=== PATIENT | male | born 1965 | race Caucasian/White ===

== ENCOUNTER 2017-03-06 17:47 | Emergency (ER) | payer OTHER, MEDICARE ==
[~2017-03-06] VITALS: Ht 172.7 cm; Wt 49.9 kg
[~2017-03-06 17:47] MED LIST: ADDERALL20 MG PO; METHADONE10 MG/5 ML PO; MULTIVITAMIN1 TAB PO; XANAX2 M1 PO
[2017-03-06] MEDS ORDERED: CYCLOBENZAPRINE10 M1 PO (18:28)
[2017-03-06] MEDS ORDERED: SUBOXONE 4 MG-1 EACH SL (18:28)
[2017-03-06] MEDS ORDERED: QUETIAPINE FUM100 M1 (18:29)
[2017-03-06] MEDS ORDERED: DEXTROAMP-AMPHE20 MG PO (18:29)
[2017-03-06] MEDS ORDERED: ADVIL200 M1 PO (18:30)
[2017-03-06] MEDS ORDERED: ALEVE220 M1 PO (18:30)
[2017-03-06] MEDS ORDERED: PAIN RELIEF325 MG PO (18:30)
[2017-03-06] MEDS ORDERED: BACTRIM DS TAB1 EACH PO (19:37)
[2017-03-06] MEDS ORDERED: AMOXICILLIN875 M1 PO (19:37)
--- NOTE | 2017-03-06 19:37 | ED SKIN/ALLERGY COMPLAINT ---
See Addendum History of Present Illness General Chief Complaint: General Adult Stated Complaint: BIBA RT ARM SKIN INFECTION (IN PD CUSTODY) Source: patient Exam Limitations: no limitations Vital Signs & Intake/Output Vital Signs & Intake/Output Vital Signs Date Time Temp Pulse Resp B/P B/P Pulse O2 O2 Flow FiO2 Mean Ox Delivery Rate 03/06 1946 97.5 84 18 125/80 97 Room Air Room Air 03/06 1753 97.9 87 15 126/86 97 Room Air Room Air ED Intake and Output 03/07 0000 03/06 1200 Intake Total Output Total Balance Patient 110 lb Weight Weight Reported by Patient Measurement Method Allergies Coded Allergies: mirtazapine (From [facility]) (Severe, SEIZURE 03/06/17) morphine (VANESSA STOMACH 03/06/17) trazodone (PRIAPISM 03/06/17) Reconcile Medications Acetaminophen (Pain Relief) 325 MG TABLET 2 TAB PO PRN PAIN (Reported) Alprazolam (Xanax) 2 MG TABLET 1 TAB PO TID PRN ANXIETY/PANIC DISORDER ( Reported) Amoxicillin 875 MG TABLET 1 TAB PO BID abscess Buprenorphine HCl/Naloxone HCl (Suboxone 4 MG-1 MG Sl Film) 4 MG-1 MG FILM 1 STR SL TID PRN MENTAL HEALTH (Reported) Cyclobenzaprine HCl 10 MG TABLET 1 TAB PO BID PRN MUSCLE RELAXER (Reported) Dextroamphetamine/Amphetamine (Dextroamp-Amphetamin 20 MG Tab) 20 MG TABLET 1 TAB PO BID ADHD (Reported) Ibuprofen (Advil) 200 MG CAPSULE 2 CAP PO PRN PAIN (Reported) Naproxen Sodium (Aleve) 220 MG CAPSULE 2 TAB PO PRN PAIN (Reported) Quetiapine Fumarate (Unknown Strength) TABLET (Unknown Dose) UNKNOWN ( Reported) Sulfamethoxazole/Trimethoprim (Bactrim Ds Tablet) 800 MG-160 MG TABLET 1 TAB PO BID abscess Triage Note: PT BIBA FROM PD LOCK UP FOR R ELBOW ABCESS. PT STUCK HIS ARM THROUGH HOLLOW WOOD DOOR LAST TUESDAY. PT'S ARM HAS ?ABCESS WITH +DRAINAGE, REDNESS. PT POKED WOUND WITH SAFETY PIN AND NOW LOOKS INFECTED. DENIES FEVER/CHILLS. Triage Nurses Notes Reviewed? yes Onset: Gradual Duration: day(s): Timing: recent history Severity: moderate Location: extremities HPI: 52yo male presents to ED c/o wound to right arm x 3 days. Patient states that three days ago he injured his hand by breaking through a wood door. The next day he noted redness and swelling which gradually worsened until today. The patient tried applying peroxide and popping it with a safety pin however this did not help. He applied bacitracin topically. He notes drainage from wound. He denies fevers, chills, IV drug use, malaise, abdominal pain. (SAIDA MÁRQUEZ PA-C) Past History Travel History Traveled to [place] past 21 day No Medical History Any Pertinent Medical History? see below for history Neurological: NONE EENT: NONE Cardiovascular: NONE Respiratory: NONE Gastrointestinal: NONE Hepatic: NONE Renal: NONE Musculoskeletal: chronic back pain, degen joint disease Psychiatric: anxiety, depression, PANIC DISORDER ADHD ON SUBOXONE S/P CAME OFF PAIN MANAGEMENT Endocrine: NONE Blood Disorders: NONE Cancer(s): NONE SHELTER ADVOCATE/Reproductive: NONE Surgical History Surgical History: non-contributory Psychosocial History Who do you live with Patient/Self What is your primary language Yi Tobacco Use: Current Daily Use Daily Tobacco Use Amount/Type: => 5 Cigarettes daily ETOH Use: denies use Illicit Drug Use: denies illicit drug use Family History Hx Contributory? No (SAIDA MÁRQUEZ PA-C) Review of Systems Review of Systems Constitutional: Reports: no symptoms. EENTM: Reports: no symptoms. Respiratory: Reports: no symptoms. Cardiovascular: Reports: no symptoms. GI: Reports: no symptoms. Genitourinary: Reports: no symptoms. Musculoskeletal: Reports: no symptoms. Skin: Reports: see HPI. Neurological/Psychological: Reports: no symptoms. Hematologic/Endocrine: Reports: no symptoms. Immunologic/Allergic: Reports: no symptoms. All Other Systems: Reviewed and Negative (SAIDA MÁRQUEZ PA-C) Physical Exam Physical Exam General Appearance: well developed/nourished, no apparent distress, alert, awake Head: atraumatic, normal appearance Eyes: Bilateral: normal appearance. Ears, Nose, Throat: hearing grossly normal Neck: normal inspection, supple, full range of motion Respiratory: normal breath sounds, no respiratory distress, lungs clear Cardiovascular: regular rate/rhythm Peripheral Pulses: 2+ radial (R) Back: normal inspection, normal range of motion Extremities: 2x2cm area of erythema, tenderness, and fluctuance with pinpoint pustules and central drainage on right cubital fossa Neurologic/Psych: no motor/sensory deficits, awake, alert, oriented x 3 Skin: 2x2cm area of erythema, fluctuance, and tenderness with pinpoint pustules and central drainage on right cubital fossa Skin Problem Character: abcess (SAIDA MÁRQUEZ PA-C) Progress Differential Diagnosis: abscess/cellulitis, contact dermatitis, urticaria, laceration, septic arthritis, bursitis Plan of Care: Orders Procedure Date/time Status EXTREMETIES CULTURE 03/06 1932 Active Microbiology 03/06 1939 EXTREMITIE: Culture & Sensitivity - RES STAPH AUREUS 03/06 1939 EXTREMITIE: Gram Stain - RES Abscess is already draining. Drainage is expressed and cultured. Patient given course of bactrim with amoxicillin for coverage of skin kayli. He will follow up here or with his PCP in 2 days for a wound check. He was educated on the signs and symptoms of infection he'll return with worsening redness, swelling, streaking up his arm, fevers, chills. The patient is in agreement with the plan of care. (SAIDA MÁRQUEZ PA-C) Departure Departure Disposition: HOME OR SELF CARE Condition: Stable Clinical Impression Primary Impression: Abscess Referrals: RUTHANN GORDILLO MD (PCP/Family) Additional Instructions: Take full course of antibiotics. Follow up here or with your primary care doctor in two days for a wound check. Return with worsening symtpoms, increased swelling, red streaking up arm, fevers, chills. Departure Forms: Customer Survey General Discharge Information Prescriptions: Current Visit Scripts Sulfamethoxazole/Trimethoprim (Bactrim Ds Tablet) 1 TAB PO BID #20 TAB Amoxicillin 1 TAB PO BID #20 TAB (SAIDA MÁRQUEZ PA-C) PA/COMMERCIAL UNDERWRITER Co-Sign Statement Statement: ED Attending supervision documentation- [] I saw and evaluated the patient. I have also reviewed all the pertinent lab results and diagnostic results. I agree with the findings and the plan of care as documented in the PA's/COMMERCIAL UNDERWRITER's documentation. [x] I have reviewed the ED Record and agree with the PA's/COMMERCIAL UNDERWRITER's documentation. [] Additions or exceptions (if any) to the PAs/COMMERCIAL UNDERWRITER's note and plan are summarized below: [] (GEMMA JAIME DO
[2017-03-06 19:46] VITALS: BP 125/80
== END 2017-03-06 19:47 ==
LOC: ERH 17:47
DX: L02.413 Cutaneous abscess of right upper limb (principal)
CPT/HCPCS: 87184; 87070; 87147